=== PATIENT | female | born 1940 | race Caucasian/White ===

== ENCOUNTER 2022-09-01 04:07 | Emergency (ER) | payer MEDICARE ==
[~2022-09-01] VITALS: Ht 152.4 cm; Wt 48.5 kg
--- NOTE | 2022-09-01 04:20 | NUR ---
TO ER BED 4. [id number] FROM HOME FOR MULTIPLE COMPLAINTS INITIAL C/O H/A. HYPERTENSIVE ON SCENE. W/ ABD DISCOMFORT. PT IS ALERT AND ORIENTED. AMBULATORY W/ ACEVEDO. RR EVEN AND NON LABORED ON ROOM AIR. CONNECTED TO POX AND HEART MONITOR
--- NOTE | 2022-09-01 04:27 | NUR ---
EMT at pt's bedside for EKG
--- NOTE | 2022-09-01 04:47 | NUR ---
IV LINE ESTABLISHED, [id number]
--- NOTE | 2022-09-01 04:48 | NUR ---
BLOOD COLLECTED AND SENT TO LAB
[2022-09-01 04:56] LABS: BASOPHILS % (AUTO) 0.2 % (0.0-2.0); EOSINOPHILS % (AUTO) 1.8 % (0.0-6.0); HEMATOCRIT 37 % (33-45); HEMOGLOBIN 12.1 g/dL (11.5-14.8); LYMPHOCYTES # (AUTO) 0.8 K/uL (0.8-4.8); LYMPHOCYTES % (AUTO) 13.5 % (20.0-44.0); MEAN CORPUSCULAR HGB CONC 33 g/dl (31.0-36.0); MEAN CORPUSCULAR VOLUME 91 fL (82-100); MONOCYTES # (AUTO) 0.5 K/uL (0.1-1.30); MONOCYTES % (AUTO) 8.1 % (2.0-12.0); NEUTROPHILS # (AUTO) 4.7 K/uL (1.8-8.9); NEUTROPHILS % (AUTO) 76.4 % (43.0-81.0); PLATELET COUNT (AUTO) 155 K/uL (150-450); RED BLOOD CELL COUNT(AUTO) 4.04 MIL/uL (4.0-5.2); WHITE BLOOD COUNT (AUTO) 6.2 K/uL (4.3-11.0)
[2022-09-01 04:57] LABS: BILIRUBIN,URINE NEGATIVE (NEGATIVE); COLOR,URINE YELLOW (YELLOW); LEUKOCYTE ESTERASE ,URINE NEGATIVE (NEGATIVE); NITRITE, URINE NEGATIVE (NEGATIVE); PROTEIN,URINE NEGATIVE (NEGATIVE); UGLUCOSE 1+ mg/dL (NEGATIVE); UROBILINOGEN,URINE 0.2 EU/dL (0.2)
[2022-09-01 05:04] LABS: BACTERIA,URINE Rare /HPF (None Seen); RBC,URINE 0-2 /HPF (0-2); SQUAMOUS EPITHELIAL CELL,UR Few /HPF (None Seen); WBC,URINE 0-2 /HPF (0-3)
[2022-09-01 05:09] LABS: CARBON DIOXIDE 26 mmol/L (21-32); CHLORIDE 96 mmol/L (98-107); CREATININE 0.8 mg/dL (0.6-1.3); GLUCOSE 217 mg/dL (74-106); POTASSIUM 3.8 mmol/L (3.5-5.1); SODIUM SERUM 129 mmol/L (136-145); UREA NITROGEN, BLOOD 13 mg/dL (7-18)
[2022-09-01 05:14] LABS: ALANINE AMINOTRANSFERASE 17 U/L (12-78); ALBUMIN 3.6 g/dL (3.4-5.0); ALKALINE PHOSPHATASE 88 U/L (46-116); ASPARTATE AMINOTRANSFERASE 23 U/L (15-37); BILIRUBIN,DIRECT 0.1 mg/dL (0.0-0.2); BILIRUBIN,TOTAL 0.3 mg/dL (0.2-1.0); LIPASE 247 U/L (73-393); TOTAL PROTEIN, SERUM 7.2 g/dL (6.4-8.2)
--- NOTE | 2022-09-01 05:14 | NUR ---
PT RETURNED TO ER BED [address]
--- NOTE | 2022-09-01 05:39 | NUR ---
DIRECTOR DIGITAL AT PT'S BEDSIDE
[2022-09-01 07:54] VITALS: BP 134/71
--- NOTE | 2022-09-01 07:54 | NUR ---
Patient discharged to home in stable condition. Written and verbal after care instructions given. Patient verbalizes understanding of instruction.
== END 2022-09-01 07:55 | disposition home or self-care (01) ==
LOC: ER 04:09
DX: I10 Essential (primary) hypertension (principal); R10.9 Unspecified abdominal pain; E11.9 Type 2 diabetes mellitus without complications; Z95.1 Presence of aortocoronary bypass graft; Z60.2 Problems related to living alone
CPT/HCPCS: 36415; 71045-TC; 80048-TC; 80076-TC; 81001; 83690-TC; 84484-TC; 85025-TC; 85730-TC